=== PATIENT | female | born 2000 | race Caucasian/White ===

== ENCOUNTER 2025-10-16 09:17 | Inpatient (IN) ==
[2025-10-16 10:06] LABS: Hematocrit (blood only) 33.3 % (37.0-47.0); Hemoglobin 10.7 g/dL (12.0-16.0); Immature Granulocytes # (auto) 0.04 K/uL (0.01-0.20); Immature Granulocytes % (auto) 0.5 %; Mean Corpuscular Hemoglobin 25.7 pg (25.0-34.0); Mean Corpuscular Volume 80.0 fL (80.0-100.0); Platelet Count 224 K/uL (130-400); RDW Standard Deviation 37.5 fL (36.4-46.3); Red Blood Count 4.16 M/uL (4.20-5.40); White Blood Count 8.21 K/ul (4.8-10.8)
[2025-10-16 10:22] LABS: Alanine Aminotransferase 11 U/L (7-52)
[2025-10-16 11:03] LABS: Protein Creatinine Ratio Urine 0.2 (0-0.2); Total Protein Urine Random 50.5 mg/dl (0-11.9)
[2025-10-16] MEDS ORDERED: OXYTOCIN 30 UNITS/NSS 30 UNITS/500 ML BAG IV PRN (15:58)
[2025-10-16] MEDS ORDERED: LIDOCAINE 1% LOCAL 20 ML VIAL INFIL PRN (15:58)
[2025-10-16 16:17] LABS: Hematocrit (blood only) 32.7 % (37.0-47.0); Hemoglobin 10.5 g/dL (12.0-16.0); Mean Corpuscular Hemoglobin 25.5 pg (25.0-34.0); Mean Corpuscular Volume 79.6 fL (80.0-100.0); Platelet Count 218 K/uL (130-400); RDW Standard Deviation 37.5 fL (36.4-46.3); Red Blood Count 4.11 M/uL (4.20-5.40); White Blood Count 8.64 K/ul (4.8-10.8)
[2025-10-16] MEDS: LACTATED RINGER'S 1,000 ML IV PRN (19:51)
[2025-10-16] MEDS: OXYTOCIN 30 UNITS/NSS 30 UNITS/500 ML BAG IV PRN (19:52)
[2025-10-17] MEDS: BUTORPHANOL TARTRATE 1 MG/ML VIAL IV ONE (00:48)
[2025-10-17] MEDS ORDERED: NALOXONE HCL 1 MG in SODIUM CHLORIDE 0.9% 1,000 ML IV PRN (03:13)
[2025-10-17] MEDS ORDERED: LIDOCAINE 2% MPF LOCAL 5 ML VIAL EPI PRN (03:13)
[2025-10-17] MEDS ORDERED: ROPIVACAINE 0.5% PF 5 MG/ML 20 ML VIAL EPI PRN (03:13)
[2025-10-17] MEDS ORDERED: NALBUPHINE HCL INJ 10 MG/ML AMP IV PRN (03:13)
[2025-10-17] MEDS ORDERED: ONDANSETRON INJ 2 MG/ML 2 ML VIAL IV PRN (03:13)
[2025-10-17] MEDS ORDERED: NALOXONE HCL 0.4 MG/1 ML VIAL/CARP IV PRN (03:13)
[2025-10-17] MEDS ORDERED: fentANYL 2 MCG/ML BUPIVacaine 0.125%-NSS 100ML BAG EPI PRN (03:13)
[2025-10-17] MEDS ORDERED: BUPIVACAINE 0.25% PF 30 ML VIAL EPI PRN (03:13)
[2025-10-17] MEDS ORDERED: diphenhydrAMINE 50 MG/ML VIAL IV PRN (03:13)
[2025-10-17] MEDS ORDERED: SODIUM CHLORIDE 0.9% PF INJ 10 ML VIAL EPI PRN (03:13)
--- NOTE | 2025-10-17 03:13 | Anesthesiology Consultation ---
Date of Service October 17, 2025 Assessment & Plan ASA ASA2 Proposed Anesthesia Anesthesia Type: Labor Epidural Risk / Benefits Reviewed With: PT / POA / Parent / Guardian, Accepts Plan and Informed Consent Obtained History Height/Weight Height: 4 ft 11 in Weight: 83.461 kg Allergies Allergy/AdvReac Type Severity Reaction Status Date / Time No Known Allergies Allergy Verified 10/16/25 10:02 Medications Home Medications Medication Instructions Recorded Confirmed Last Taken 21-iron fu-folic acid 1 pill PO 03/13/25 10/16/25 1 Day Ago [ Complete] ~10/15/25 Active Medications Generic Name Dose Route Start Last Admin Trade Name Freq PRN Reason Stop Dose Admin Lactated Ringer's 1,000 mls @ 125 mls/hr 10/16/25 15:58 10/17/25 03:48 Lr IV 10/18/25 15:57 125 mls/hr .Q8H PRN Infusion L&D Protocol Protocol Oxytocin 30 units in 500 mls @ 14 mls/hr 10/16/25 15:58 10/17/25 01:55 Pitocin 30 Units/Nss IV 10/18/25 15:57 0.84 units/hr .Q24H PRN 14 mls/hr Labor Induction/Augmentation Titration Protocol 0.84 UNITS/HR Past Medical History Medical History History of migraine with aura Boil, breast Varicella vaccination Congenital heart defect TREATED WITH SURGERY AT AGE 6, 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 CARDS Atrial septal defect Exercise / Class Metabolic Activity II 4-5 Yardwork/Stairs/Walk up hill Past Family History Family History Grandfather (Paternal) Type 2 diabetes mellitus Father Hypertension Hypercholesteremia Denies family history of Ovarian cancer Breast cancer Colorectal cancer Past Surgical History Surgical History History of heart surgery "UMBRELLA PROCEDURE" AT AGE 6 PER DAD Past Anesthesia History No Hx of Anesthesia Complications and No Family Hx of Anesthesia Complications History of PONV No Hx of PONV and No Hx of Motion Sickness Social History Smoking Status: Never smoker tobacco type: e-cigarettes Do You Dip or Chew Tobacco: No Hx Alcohol Use: Yes Hx Substance Use: No Review of Systems denies fever/cough/ colds/ chest pain/ SOB/ GARTH denies GARTH Physical Exam Vital Signs Last Vital Signs Temp 36.8 C 10/17/25 01:05 Pulse 80 10/17/25 03:55 Resp 16 10/17/25 01:05 BP 135/72 10/17/25 03:51 Pulse Ox 98 10/17/25 03:55 ENMT Mouth: no TMJ abnormality and no dentition abnormality Thyromental Distance: > or= 3.5 Finger Breadths Mallampati Class: II Neck neck extension not limited Respiratory normal respiratory effort; no respiratory distress Auscultation: lungs clear to auscultation bilaterally Cardiovascular Rate/Rhythm: regular rate and regular rhythm Neurologic moves all extremities Psychiatric Orientation: alert and oriented x 3 Testing Laboratory Results 10/16/25 16:03 10/16/25 09:48
[2025-10-17] MEDS: fentANYL 2 MCG/ML BUPIVacaine 0.125%-NSS 100ML BAG ONE (03:41)
[2025-10-17] MEDS: BUPIVACAINE 0.25% PF 30 ML VIAL ONE (03:46)
[2025-10-17] MEDS: LIDOCAINE 2%/EPINEPHRINE 1:200,000 20 ML PF ONE (03:46)
[2025-10-17] MEDS: SODIUM CHLORIDE 0.9% PF INJ 10 ML VIAL ONE (06:43)
[2025-10-17] MEDS: LIDOCAINE 2%/EPINEPHRINE 1:200,000 20 ML PF EPI STA (06:43)
[2025-10-17] MEDS: SODIUM CHLORIDE 0.9% PF INJ 10 ML VIAL EPI STA (06:43)
[2025-10-17] MEDS: BUPIVACAINE 0.25% PF 30 ML VIAL EPI STA (06:43)
--- NOTE | 2025-10-17 06:47 | Labor Progress Brief Note ---
Date of Service October 17, 2025 Subjective Presented to bedside after Rock came out within the past hour. Assessment & Plan (1) Supervision of normal first : Plan: Citlalli is a 25-year-old currently at 38 weeks 1 day gestational age. Patient undergoing induction of labor secondary to gestational hypertension. 1. Fetus: Category 1 tracing. 2. Labor: Status post cervical ripening Rock. Continue oxytocin per regular protocol. AROM for clear 3. Vitals: Occasional mild range blood pressures. No indication for blood pressure treatment at present. Denying preeclampsia symptoms. Preeclampsia labs within normal range including normal protein/creatinine ratio 4. GBS negative Trimester: third trimester Qualified Code(s): Z34.03 - Encounter for supervision of normal first , third trimester (2) Gestational hypertension without significant proteinuria: Trimester: third trimester Qualified Code(s): O13.3 - Gestational [-induced] hypertension without significant proteinuria, third trimester Admission and Anticipated Discharge Date Admission Date: October 16, 2025 Physical Exam Genitourinary: Manual OB Exam: + cervical dilation (4-5), + cervical effacement 80%, + station -1 and + amniotic fluid (AROM) clear OB Exam Monitor Tracing: + external FHT monitor used, + external uterine monitor used, + category I and + normal FHT variability Bulging bag noted on exam and ruptured for clear. Patient verbally consented for rupture of membranes Results & Data Vital Signs (Past 12 Hours) Vital Signs Temp Pulse Resp BP Pulse Ox 10/17/25 06:40 82 100 10/17/25 06:37 63 138/87 10/17/25 06:35 70 100 10/17/25 06:30 68 100 10/17/25 06:25 75 100 10/17/25 06:23 75 137/77 10/17/25 06:20 83 100 10/17/25 06:15 93 H 100 10/17/25 06:10 82 100 10/17/25 06:07 77 146/87 H 10/17/25 06:05 82 100 10/17/25 06:00 63 100 10/17/25 05:55 63 100 10/17/25 05:53 67 143/86 H 10/17/25 05:50 64 100 10/17/25 05:45 72 99 10/17/25 05:40 67 100 10/17/25 05:37 80 144/89 H 12/23/25 05:35 88 99 10/17/25 05:33 86 92 10/17/25 05:30 36.8 C 70 18 99 10/17/25 05:25 65 99 10/17/25 05:24 72 141/82 H 10/17/25 05:20 64 100 10/17/25 05:15 65 100 10/17/25 05:10 66 100 10/17/25 05:08 68 136/94 10/17/25 05:05 74 100 10/17/25 05:00 65 100 10/17/25 04:55 67 100 10/17/25 04:54 68 139/80 10/17/25 04:50 71 99 10/17/25 04:45 67 98 10/17/25 04:40 66 98 10/17/25 04:39 67 143/79 H 10/17/25 04:35 65 99 10/17/25 04:30 73 100 10/17/25 04:25 68 96 10/17/25 04:22 68 133/71 10/17/25 04:20 64 98 10/17/25 04:15 67 98 10/17/25 04:10 86 100 10/17/25 04:08 72 136/71 10/17/25 04:05 70 98 10/17/25 04:00 73 97 10/17/25 03:55 80 98 10/17/25 03:51 83 135/72 10/17/25 03:50 85 98 10/17/25 03:45 99 10/17/25 03:45 87 10/17/25 03:45 93 H 132/75 10/17/25 03:43 83 131/66 10/17/25 03:41 80 129/69 10/17/25 03:40 91 H 98 10/17/25 03:39 82 134/73 10/17/25 03:37 78 133/73 10/17/25 03:36 80 131/71 10/17/25 03:35 99 10/17/25 03:35 78 10/17/25 03:35 75 124/85 10/17/25 03:30 81 99 10/17/25 03:25 86 98 10/17/25 03:20 98 H 98 10/17/25 03:15 87 100 10/17/25 03:10 84 100 10/17/25 03:05 98 10/17/25 03:05 78 10/17/25 03:05 80 94 10/17/25 03:00 36.7 C 88 22 100 10/17/25 02:55 82 99 10/17/25 02:50 72 99 10/17/25 02:45 70 97 10/17/25 02:40 80 100 10/17/25 01:06 78 127/78 10/17/25 01:05 16 10/17/25 01:05 36.8 C 16 10/17/25 00:53 77 136/81 10/16/25 23:08 63 139/83 10/16/25 23:00 16 10/16/25 23:00 36.8 C 16 10/16/25 21:09 74 142/80 H 10/16/25 21:00 18 10/16/25 21:00 36.9 C 18 10/16/25 19:06 85 149/96 H 10/16/25 19:05 37.0 C 18 10/16/25 19:05 85 148/101 H 10/16/25 19:00 18 10/16/25 19:00 37.0 C 18 Coding Level of Care Code None Diagnoses Encounter for supervision of normal first in third trimester Z34.03 Trimester: third trimester Gestational hypertension without significant proteinuria in third trimester O13.3 Trimester: third trimester
--- NOTE | 2025-10-17 10:27 | Delivery Summary ---
Vaginal Delivery Summary Date of Service October 17, 2025 Vaginal Delivery Summary (left labial lac) Pre-operative Diagnosis: at 38 weeks ghtn Post-operative Diagnosis: same Procedure: [place] bulb pitocin iol epidural arom small left labial lac and reapir QBL: 110cc Anesthesia: epidural Procedure: Patient presented to labor and delivery from the office with elevated pressues. Diagnosed with GHTN and induced. [place] placed, fell out, epidural, pitocin and arom for clear fluid. The patient progressed quickly from 4 to 10cm after arom to c/c/+1. The patient pushed for about 30 minutes to deliver a viable male in liborio position, compound presentation with the left/posterior arm. A mild shoulder dystocia noted that was releived with Sandra, suprapubic pressure and rotation of the posterior shoulder, lasted less than one minute. The rest of the was then delivered without difficulty. The baby was not vigorous. The nose and mouth were\ bulb suctioned and the infant was placed in the maternal abdomen for drying and attention. Cord was clamped and cut at at less than one minute of life as it continued to not be vigorous and was taken to the warmer for drying and attention. Cord blood obtained. Placenta delivered spontaneous, intact with a three vessel cord. Cervix/sulci/rectum/perineum were intact. A small left labial laceration was repaired in the normal standard fashion. Hemostasis obtained with dilute pitocin and fundal massage. Apgars were 8/9. Mother and baby doing well at the end of the delivery. [facility] Vaginal Delivery Charge Delivery Type Details: (left labial lac)
--- NOTE | 2025-10-17 10:39 | Anesthesia Procedure Note ---
Date of Service October 17, 2025 Anesthesia Post Epidural Note Vital Signs Vital Signs: Temp Pulse Resp BP Pulse Ox O2 Del Method 36.8 C 105 H 18 165/80 H 100 Room Air 10/17/25 10:21 10/17/25 10:37 10/17/25 09:00 10/17/25 10:37 10/17/25 10:16 10/17/25 07:15 Pain Intensity Bilateral Abdomen: Pain Intensity: 8 Notes Mental Status: alert / awake / arousable Nausea / Vomiting: adequately controlled Pain: adequately controlled Airway Patency, RR, SpO2: stable & adequate BP & HR: stable & adequate Hydration State: stable & adequate Neuraxial Anesthesia: was administered and sensory block is resolving Anesthetic Complications: no major complications apparent and Pt Satisfied with anesthetic care Epidural: Removed without complications and With tip intact
[2025-10-17] MEDS ORDERED: OXYTOCIN 30 UNITS/NSS 30 UNITS/500 ML BAG IV PRN (10:46)
[2025-10-17] MEDS ORDERED: HYDROCORTISONE ACETATE 25 MG SUPP PR PRN (10:46)
[2025-10-17] MEDS: BENZOCAINE 20% SPRY 85 APPLN/85 GM CAN EXT PRN (11:04)
[2025-10-17] MEDS: IBUPROFEN 600 MG TAB PO PRN (11:04)
[2025-10-17] MEDS: DIPHTHER/TETAN/PERTUS Vaccine (Tdap, Adol/Adult) 0.5mL IM ONE (12:16)
[2025-10-17] MEDS: DOCUSATE SODIUM 100 MG CAP PO SCH (20:08)
[2025-10-18 03:18] VITALS: O2SAT 96
--- NOTE | 2025-10-18 06:54 | Obstetrical Progress Note ---
Date of Service October 18, 2025 Assessment & Plan (1) Gestational hypertension without significant proteinuria: (2) care following delivery: Plan 25 yo post- day 1 s/p . Fells well today. Vital signs stable Continue post- care Encourage ambulation and Pain controlled with ibuprofen Hgb stable Discharge home today, follow up with Dr. Dave in 6 weeks. Admission and Anticipated Discharge Date Admission Date: October 16, 2025 Supervising Physician Co-Signing Physician Notes Resident Physician Supervision Note: I interviewed and examined the patient. Discussed with Dr. Holloway and agree with findings and plan as documented in the note. Any exceptions or clarifications are listed here: Doing well. no s/s of pet and bps are good. Desires d/c today. Instructions given. f/u in 1 week for a blood pressure check. Documented By: Cierra Dave MD, FACOG Subjective 25 yo post- day 1 s/p . Ambulation: ambulating normally Voiding: no voiding problems Passing Gas:: Yes Diet Tolerance:: regular diet Lochia:: Small Feeding Type:: bottle feeding Current Pain Level:Slight pain. Resting comfortably this AM in NAD. Denies GUARDADO, CP, SOB, N/V/D, LE pain/swelling. Review of Systems Review of Systems: As per HPI. Physical Exam Physical Exam: General: patient resting comfortably, NAD, non-toxic in appearance, AA&O x 4, answers questions appropriately. Skin: warm, dry, intact HEENT: NC/AT, anicteric sclera, conjunctiva without injection, moist mucus membranes. Heart: +S1/S2, regular, no m/r/g Lungs: equal air entry bilaterally, no rales/rhonchi/wheezes Abd: +BS, soft, NT/ND, uterine fundus firm at umbilicus. Ext: warm, no clubbing/cyanosis or edema, Topher's neg. Neuro: nonfocal, patient AA&O x 4, speech intact, no facial droop, moving all extremities on command. Results & Data Vital Signs (Past 12 Hours) Vital Signs Temp Pulse Resp BP BP Pulse Ox O2 Del Method 10/18/25 03:07 36.9 C 72 18 135/86 96 Room Air 10/17/25 23:59 36.9 C 92 H 18 132/84 97 Room Air 10/17/25 20:05 37.0 C 81 18 139/88 99 Room Air Resident Activity Tracking Resident Involvement: Resident Care Provided Care Provided: Adult Hospital Medicine (1) Gestational hypertension without significant proteinuria Trimester: third trimester Qualified Code(s): O13.3 - Gestational [- induced] hypertension without significant proteinuria, third trimester
[2025-10-18] MEDS: PRENATAL VITAMIN 1 TAB PO SCH (08:28)
[2025-10-18] MEDS: ACETAMINOPHEN 325 MG TAB PO PRN (08:28)
[2025-10-18 09:26] LABS: Hematocrit (blood only) 26.8 % (37.0-47.0); Hemoglobin 8.7 g/dL (12.0-16.0)
[2025-10-18 09:33] VITALS: PULSE 82; RESP 20; TEMP 98.1
[2025-10-18 11:17] VITALS: BP 135/86
== END 2025-10-18 13:08 | disposition home or self-care (01) | DRG 768 ==
LOC: OPB 09:17 → 4S1 09:20 → 4S4 10-17 13:32 → 4E2 10-17 13:34